=== PATIENT | male | born 1965 | race Caucasian/White ===

== ENCOUNTER 2021-02-22 16:41 | Emergency (ER) | payer OTHER ==
[2021-02-22 17:42] VITALS: TEMP 98; BMI 28.6
[2021-02-22] MEDS ORDERED: SODIUM CHLORIDE 1,000 ML IV SCH (18:00)
[2021-02-22] MEDS ORDERED: predniSONE 20 MG TABLET (UD) PO ONE (18:15)
[2021-02-22] MEDS ORDERED: valACYclovir HCL 1000 MG TABLET PO ONE (18:16)
[2021-02-22] MEDS ORDERED: predniSONE 20 MG TABLET (UD) ONE (18:40)
[2021-02-22] MEDS ORDERED: valACYclovir HCL 500 MG TABLET (FP) PO ONE (18:45)
[2021-02-22] MEDS ORDERED: valACYclovir HCL 500 MG TABLET (FP) ONE (19:05)
[2021-02-22 19:14] LABS: EOS % 1.6 % (0-4.5); HEMATOCRIT 44.8 % (35.4-49); HEMOGLOBIN 15.3 GM/dL (11.7-16.9); LYMPH % 40.1 % (8-40); MCH 31.8 pg (25.7-33.7); MCHC 34.2 g/dl (32.0-35.9); MEAN CELL VOLUME 92.9 fl (80-96); MEAN PLT VOLUME 8.3 fl (7.5-11.1); MONO % 8.3 % (3.8-10.2); PLATELET COUNT 190 10^3/uL (134-434); RBC 4.82 M/mm3 (4.00-5.60); RDW 12.4 % (11.9-15.9); WHITE BLOOD COUNT 4.6 K/mm3 (4.0-10.0)
[2021-02-22 19:17] LABS: INR 0.92 (0.83-1.09); PROTHROMBIN TIME (PATIENT) 11.4 SEC (9.7-13.0)
[2021-02-22 19:20] LABS: ACTIVATED PTT 30.3 SECONDS (25.2-36.5)
[2021-02-22 19:37] LABS: CHLORIDE 109 mmol/L (98-107); SODIUM 141 mmol/L (136-145)
[2021-02-22 19:39] LABS: ANION GAP 8 MMOL/L (8-16); BLOOD UREA NITROGEN 16.2 mg/dL (7-18); CALCIUM 8.4 mg/dL (8.5-10.1); CO2 24 mmol/L (21-32); GLUCOSE,RANDOM 167 mg/dL (74-106)
[2021-02-22 19:40] LABS: ALBUMIN 3.8 g/dl (3.4-5.0)
[2021-02-22 19:43] LABS: CHOLESTEROL 204 mg/dL (50-200); CREATININE 0.8 mg/dL (0.55-1.3); SGOT/AST 37 U/L (15-37); SGPT/ALT 36 U/L (13-61)
[2021-02-22 19:44] LABS: BILIRUBIN,TOTAL 0.6 mg/dL (0.2-1); LDL CHOLESTEROL (ONLY SJRH) 113 mg/dL (5-100); TOT PROT 7.4 g/dl (6.4-8.2); TRIGLYCERIDES 580 mg/dL (0-150)
[2021-02-22 19:46] LABS: ALK PHOS 102 U/L (45-117); HDL CHOLESTEROL 38 mg/dL (40-60)
[2021-02-22 20:17] VITALS: BP 142/84; PULSE 58
== END 2021-02-22 20:17 | disposition home or self-care (01) ==
LOC: JER 16:41
DX: G51.0 Bell's palsy (principal)
CPT/HCPCS: 36415; 70450-TC; 80053; 80061; 82550; 82553; 83721; 84484; 85025; 85610; 85730; 93005; 93010; 99285-25